=== PATIENT | male | born 1985 | race African-American/Black ===

== ENCOUNTER 2016-08-20 10:34 | Emergency (ER) | payer SELFPAY ==
[~2016-08-20] VITALS: Ht 188 cm; Wt 90.7 kg
[2016-08-20] MEDS ORDERED: IBUPROFEN600 MG ORAL (12:11)
[2016-08-20] MEDS ORDERED: SEROQUEL100 MG ORAL (12:11)
[2016-08-20 12:16] VITALS: BP 124/68
[2016-08-20 12:25] VITALS: BP 124/68
--- NOTE | 2016-08-20 13:35 | Diagnostic Imaging Report ---
Indication: PAIN Technique: 3 views of the right shoulder Comparison: none Findings: There is marked inferior displacement of the humeral head in relation to the glenoid, with widening of the distance between acromion and the humeral head. However, the joint does not appear to be completely dislocated. There is evidence of prior surgical repair of now healed femoral neck fracture. Calcifications adjacent to the humeral likely represent rotator cuff calcific tendinosis. No acute fractures. Impression:Humeral head appears inferiorly subluxed but not frankly dislocated. This could indicate laxity of the rotator cuff, or less likely inferior displacement by large joint effusion No acute bony trauma Postsurgical and posttraumatic changes, as described Findings previously discussed by phone with Dr. Yap in the emergency room
--- NOTE | 2016-08-20 16:30 | Diagnostic Imaging Report ---
Indication: PAIN Technique: 3 views left hand Comparison: none Findings: Is a severe flexion deformity of the third proximal interphalangeal joint. The joint appears subluxed but not completely dislocated. No definite bony fracture demonstrated. No other evidence of acute fracture or dislocation. The joint spaces are preserved Impression: Severe flexion deformity of the third proximal interphalangeal joint, probably with some subluxation but no tracey dislocation No acute bony trauma Findings previously discussed by phone with Dr. Yap in the emergency room
--- NOTE | 2016-08-21 23:07 | Emergency Room Report ---
History of Present Illness General Chief Complaint: General Complaint Source: Patient Present Illness HPI Patient is a 30-year-old male who presented after increased right shoulder pain as well as left hand pain. Patient gradual onset of symptoms patient stated that he did have intermittent pain since the prior surgery. Patient stated that he was having difficulty moving her shoulder intermittently. He had been previous treated at [facility]. Patient denied any recent fever. Allergies: Coded Allergies: No Known Allergies (Unverified , 08/20/16) Patient History Past Medical History: see triage record Reviewed Nursing Documentation: PMH: Agreed, PSxH: Agreed Nursing Documentation-PMH Past Medical History: No History, Except For History Of Psychiatric Problem: Yes - schizophrenia, depression Review of Systems All Other Systems: negative except mentioned in HPI Physical Exam Vital Signs Date Time Temp Pulse Resp B/P Pulse Ox O2 Delivery O2 Flow Rate FiO2 08/20/16 10:47 98.6 90 14 118/65 97 Room Air General Appearance: well appearing, no apparent distress, alert, GCS 15 Head: normocephalic, atraumatic ENT: hearing grossly normal, normal voice Neck: full range of motion, supple Respiratory: no respiratory distress, speaking full sentences Musculoskeletal: no calf tenderness, decreased range of mation - left shoulder , post surgical changes, other Neurologic: alert, oriented x3, responsive, normal gait Psychiatric: judgement/insight normal, mood/affect normal, no suicidal/ homicidal ideation, no delusions Skin: no rash Medical Decision Making Diagnostic Impression: Primary Impression: Shoulder subluxation, right Additional Impression: Finger deformity, acquired ER Course The patient presented for right shoulder pain and left finger pain. Differential diagnoses included was not limited to fracture, dislocation, a.c. separation, septic joint. X-ray imaging of the right shoulder 3 views read by radiology showed markedly of subluxation postsurgical changes without evident fracture dislocation. X-ray imaging of the left hand read by radiology showed a flexion deformity without evident dislocation. The patient was given prescriptions for pain medications. He is advised followup with his orthopedic physician for further evaluation and treatment. Last Vital Signs Date Time Temp Pulse Resp B/P Pulse Ox O2 Delivery O2 Flow Rate FiO2 08/20/16 12:25 98.6 84 14 124/68 97 Room Air Status: improved Disposition: HOME, SELF-CARE Condition: Stable Scripts Quetiapine Fumarate* (SEROQUEL*) 100 Mg Tablet 100 MG ORAL DAILY, #30 TAB Prov: Milton Yap 08/20/16 Ibuprofen* (MOTRIN*) 600 Mg Tablet 600 MG ORAL Q8H Y for For Pain, #30 TAB 0 Refills Prov: Milton Yap 08/20/16 Referrals: NOT CHOSEN [facility]/,REFERRING (PCP) Patient Instructions: Shoulder Pain, Finger or Thumb Dislocation Milton Yap Aug 21, 2016 23:07
--- NOTE | 2016-08-24 11:38 | Cardiology Report ---
APPROVED REPORT EKG Measurement Heart [id number] Normal sinus rhythm with sinus arrhythmia Normal ECG
== END 2016-08-20 12:42 | disposition home or self-care (01) ==
LOC: EMR 12:31
DX: S43.001A Unspecified subluxation of right shoulder joint, initial encounter (principal); M21.242 Flexion deformity, left finger joints; F20.9 Schizophrenia, unspecified; X58.XXXA Exposure to other specified factors, initial encounter; Y93.9 Activity, unspecified; Y92.9 Unspecified place or not applicable
CPT/HCPCS: 29240; 93005; 99284